=== PATIENT | male | born 1975 | race Caucasian/White ===

== ENCOUNTER 2021-01-26 17:34 | Emergency (ER) | payer OTHER ==
[~2021-01-26] VITALS: Ht 165.1 cm; Wt 79.4 kg
--- NOTE | 2021-01-26 17:34 | NUR ---
1728-- Pt DAVYA via gurney to bed 06. [place] [employer] arrived with Pt.
[2021-01-26 17:36] VITALS: BP 143/93
--- NOTE | 2021-01-26 17:47 | NUR ---
45 Y/O MALE BIBA ON 5150 FOR SI. PER EMT PT CALLED HIS AND TOLD HER SHE WAS NEVER GOING TO SEE HIM AGAIN. PT ADMITS TO DRINKING 9 BOTTLES OF BEER YESTERDAY AND 6 BOTTLES TODAY. PT ALSO TOOK COCAINE AND ATIVAN YESTERDAY WITH PRESCRIPTION MEDICATIONS. PMH: HTN, DM, MDD RX: ATIVAN, TRAZADONE, LISINOPRIL, CELEXA NKA
[2021-01-26] MEDS ORDERED: NACL 0.9% 1,000 ML IV ONE (17:55)
--- NOTE | 2021-01-26 18:13 | NUR ---
MAILING CLERK AT PT BEDSIDE.
--- NOTE | 2021-01-26 18:14 | NUR ---
COLLECTED JEFFERY FERNANDES, JEFFERY RAVI GAVE TO SYNTHETIC CHEMIST AT PT BEDSIDE.
--- NOTE | 2021-01-26 18:15 | NUR ---
RAISER HELPER AT PT BEDSIDE.
[2021-01-26 18:17] LABS: BASOPHILS % (AUTO) 0.3 % (0.0-2.0); EOSINOPHILS % (AUTO) 0.1 % (0.0-4.0); HEMATOCRIT 44.9 % (36-52); HEMOGLOBIN 15.3 g/dL (12.0-18.0); LYMPHOCYTES # (AUTO) 1.3 K/uL (2.0-11.5); LYMPHOCYTES % (AUTO) 25.5 % (20.5-51.1); MEAN CORPUSCULAR HEMOGLOBIN 31 pg (27-31); MEAN CORPUSCULAR HGB CONC 34 g/dL (33-37); MEAN CORPUSCULAR VOLUME 89.8 fL (80-94); MONOCYTES # (AUTO) 0.3 K/uL (0.8-1.0); MONOCYTES % (AUTO) 6.2 % (1.7-9.3); NEUTROPHILS # (AUTO) 3.5 K/uL (1.8-7.7); NEUTROPHILS % (AUTO) 67.9 % (42.2-75.2); PLATELET COUNT (AUTO) 277 K/uL (140-450); WHITE BLOOD COUNT (AUTO) 5.2 K/uL (4.8-10.8)
[2021-01-26 18:39] LABS: ALBUMIN 4.2 g/dL (3.4-5.0); ASPARTATE AMINOTRANSFERASE 51 U/L (15-37); CARBON DIOXIDE 23.7 mmol/L (21-32); CHLORIDE 105 mmol/L (98-107); CREATININE 0.9 mg/dL (0.6-1.3); GFR ARICAN-AMERICAN 118 mL/min (>90); GLUCOSE 157 mg/dL (74-106); POTASSIUM 3.7 mmol/L (3.5-5.1); SODIUM SERUM 140 mmol/L (136-145); TOTAL BILIRUBIN 0.4 mg/dL (0.0-1.0); UREA NITROGEN, BLOOD 9 mg/dL (7-18)
[2021-01-26 18:40] LABS: ACETAMINOPHEN < 0.5 ug/ml (10-30); SALICYLATE < 2.8 mg/dL (2.8-20.0)
--- NOTE | 2021-01-26 19:01 | NUR ---
PT SLEEPING SUPINE, VSS, WILL CONTINUE TO MONITOR.
--- NOTE | 2021-01-26 19:38 | NUR ---
RECEIVED REPORT FROM ARNOLDO ROWE FOR CONTINUITY OF CARE
--- NOTE | 2021-01-26 19:38 | NUR ---
GAVE REPORT TO ARNOLDO ROSAS. TRANSFER OF CARE AT THIS TIME.
--- NOTE | 2021-01-26 21:12 | NUR ---
TELEPSYCH INITIATED PER ER DR. BAILON
--- NOTE | 2021-01-26 22:35 | NUR ---
CALLED FOR MEDICATION RECONCILIATION-- NO ANSWER AT THIS TIME
--- NOTE | 2021-01-26 22:52 | NUR ---
SPOKE WITH REGARDING MEDICATION RECONCILIATION AND UPDATES ON PATIENT. WOULD LIKE FUTURE UPDATES ON PATIENT
[2021-01-26] MEDS ORDERED: TRAZ-343 PO (22:56)
[2021-01-26] MEDS ORDERED: GABA300C PO (22:56)
[2021-01-26] MEDS ORDERED: LISI40TA12 PO (22:56)
[2021-01-26] MEDS ORDERED: METF-350 PO (22:56)
[2021-01-26] MEDS ORDERED: GLIP10TA3 PO (22:56)
[2021-01-26] MEDS ORDERED: ROSU20TA1 PO (22:56)
[2021-01-26] MEDS ORDERED: LORA-476 PO (22:56)
[2021-01-26] MEDS ORDERED: CITA40TA13 PO (22:56)
[2021-01-26] MEDS ORDERED: LINA5TAB PO (22:56)
[2021-01-26] MEDS ORDERED: TRI48 PO (22:56)
[2021-01-26] MEDS ORDERED: NALT50TA5 PO (22:56)
--- NOTE | 2021-01-27 00:25 | NUR ---
spoke to psych doctor about patient-- updates and info
--- NOTE | 2021-01-27 00:53 | NUR ---
telepsych doctor speaking/assessing patient
--- NOTE | 2021-01-27 01:11 | NUR ---
PSYCH DOCTOR REPORTS PATIENT CAN GO HOME LONG PICKS PATIENT UP IN THE MORNING. MD ALSO REPORTS THAT PATIENT CAN GO HOME LONG " FEELS SAFE IN BRINGING PATIENT TO GO HOME."
[2021-01-27 02:29] LABS: APPEARANCE,URINE CLEAR (CLEAR); BILIRUBIN,URINE NEGATIVE (NEGATIVE); BLOOD, URINE NEGATIVE (NEGATIVE); COLOR,URINE YELLOW (YELLOW); LEUKOCYTE ESTERASE ,URINE NEGATIVE (NEGATIVE); NITRITE, URINE NEGATIVE (NEGATIVE); UGLUCOSE NEGATIVE (NEGATIVE)
[2021-01-27 05:52] VITALS: BP 140/92
--- NOTE | 2021-01-27 07:14 | NUR ---
Pt report given to Mikey MCLAUGHLIN. Transfer of care at this time.
--- NOTE | 2021-01-27 07:14 | NUR ---
Report and continuation of care received from ARNOLDO Lilly.
--- NOTE | 2021-01-27 07:29 | NUR ---
Called for discharge and is patient's transportation-- answered and will pick patient up in the morning
--- NOTE | 2021-01-27 07:45 | NUR ---
Patient states he feels a lot better. Resource packet provided.
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
--- NOTE | 2021-01-27 08:00 | NUR ---
Reyna andrade in [facility] - 01/27/21 at 0804 by HEATHER Breakfast meal tray at bedside.
--- NOTE | 2021-01-27 08:03 | NUR ---
Reyna andrade in [facility] - 01/27/[address] Velasquez is evaluating patient at bedside.
--- NOTE | 2021-01-27 08:06 | NUR ---
Patient discharged with v/s stable. Written and verbal after care instructions given and explained. Patient verbalized understanding. Ambulatory with steady gait. All questions addressed prior to discharge. Advised to follow up with PMD. Resource packet provided.
== END 2021-01-27 08:06 | disposition home or self-care (01) ==
LOC: MED 17:34
DX: N20.0 Calculus of kidney (principal); M54.5 Low back pain; G89.29 Other chronic pain; Z20.822 Contact with and (suspected) exposure to COVID-19; E11.9 Type 2 diabetes mellitus without complications; I10 Essential (primary) hypertension
CPT/HCPCS: 71045; 80053; 81003; 85025; 87426; 93005; 96360; 96361; 99285; G0480; G0482; J7030; U0003

== ENCOUNTER 2022-08-22 23:59 | Emergency (ER) | payer OTHER ==
[~2022-08-22] VITALS: Ht 165.1 cm; Wt 72.6 kg
[~2022-08-22 23:59] MED LIST: CITA40TA13 PO; GABA300C PO; GLIP10TA3 PO; LINA5TAB PO; LISI40TA12 PO; LORA-476 PO; METF-350 PO; NALT50TA5 PO; ROSU20TA1 PO; TRAZ-343 PO; TRI48 PO
[2022-08-23 00:10] VITALS: BP 143/100
--- NOTE | 2022-08-23 00:13 | NUR ---
TO LOBBY A/W BED AMBULATORY
--- NOTE | 2022-08-23 02:07 | NUR ---
PT AMBULATORY TO BED 8. PT PLACED ON CARIDAC MONITOR. HOB ELEVATED. SZ PADS PLACED ON SIDE RAILS X2. HX OF ETOH WITHDRAWL /SZ
[2022-08-23] MEDS ORDERED: NACL 0.9% 1,000 ML IV ONE (02:25)
[2022-08-23 02:28] LABS: BASOPHILS # (AUTO) 0.1 K/uL (0.00-0.22); EOSINOPHILS # (AUTO) 0.1 K/uL (0-0.4); EOSINOPHILS % (AUTO) 1.5 % (0.0-4.0); HEMATOCRIT 46.8 % (36-52); HEMOGLOBIN 16.1 g/dL (12.0-18.0); LYMPHOCYTES # (AUTO) 2.6 K/uL (2.0-11.5); LYMPHOCYTES % (AUTO) 40.6 % (20.5-51.1); MEAN CORPUSCULAR HEMOGLOBIN 32 pg (27-31); MEAN CORPUSCULAR HGB CONC 34 g/dL (33-37); MEAN CORPUSCULAR VOLUME 91.7 fL (80-94); MONOCYTES # (AUTO) 0.5 K/uL (0.8-1.0); MONOCYTES % (AUTO) 7.3 % (1.7-9.3); NEUTROPHILS # (AUTO) 3.1 K/uL (1.8-7.7); NEUTROPHILS % (AUTO) 49.6 % (42.2-75.2); PLATELET COUNT (AUTO) 250 K/uL (140-450); RED CELL DISTRIBUTION WIDTH 13.6 % (11.6-13.7); WHITE BLOOD COUNT (AUTO) 6.3 K/uL (4.8-10.8)
--- NOTE | 2022-08-23 02:36 | NUR ---
PT IS HERE BECAUSE HE HAS BEEN DRINKING FOR 3 DAYS. HE IS A&OX[employer] [place] [employer].
[2022-08-23 02:42] LABS: ALBUMIN 4.2 g/dL (3.4-5.0); ANION GAP 21.6 (8-16); ASPARTATE AMINOTRANSFERASE 109 U/L (15-37); CARBON DIOXIDE 21.5 mmol/L (21-32); CHLORIDE 98 mmol/L (98-107); CREATININE 0.9 mg/dL (0.6-1.3); GFR ARICAN-AMERICAN 118 mL/min (>90); GLUCOSE 360 mg/dL (74-106); POTASSIUM 4.1 mmol/L (3.5-5.1); SODIUM SERUM 137 mmol/L (136-145); TOTAL BILIRUBIN 0.3 mg/dL (0.0-1.0); UREA NITROGEN, BLOOD 10 mg/dL (7-18)
[2022-08-23 02:46] LABS: ACETAMINOPHEN < 0.5 ug/ml (10-30); SALICYLATE < 2.8 mg/dL (2.8-20.0)
[2022-08-23 04:44] VITALS: BP 137/91
--- NOTE | 2022-08-23 04:45 | NUR ---
Patient discharged with v/s stable. Written and verbal after care instructions given and explained. Patient verbalized understanding. Ambulatory with steady gait. All questions addressed prior to discharge. Advised to follow up with PMD. PT LEFT WITH HIS BELONIGINGS.
== END 2022-08-23 04:44 | disposition home or self-care (01) ==
LOC: MED 23:59
DX: F10.129 Alcohol abuse with intoxication, unspecified (principal); R74.01 Elevation of levels of liver transaminase levels; F41.9 Anxiety disorder, unspecified; E11.9 Type 2 diabetes mellitus without complications; I10 Essential (primary) hypertension; Z79.899 Other long term (current) drug therapy; Y90.8 Blood alcohol level of 240 mg/100 ml or more
CPT/HCPCS: 36415; 80053; 85025; 96360; 99283; G0480; G0482; J7030